=== PATIENT | male | born 1980 | race Two or more races ===

== ENCOUNTER 2021-07-02 00:27 | Emergency (ER) | payer SELFPAY ==
[~2021-07-02] VITALS: Ht 188 cm; Wt 81.8 kg
[2021-07-02] MEDS ORDERED: CLIN300C3 PO (00:37)
[2021-07-02] MEDS ORDERED: DiphenhydrAMINE HCL 25 MG CAPSULE PO ONE (02:45)
[2021-07-02] MEDS ORDERED: BACITRACIN 0.9 GM PACKET OINTMENT TP ONE (02:45)
[2021-07-02 03:36] VITALS: BP 124/69
== END 2021-07-02 03:56 | disposition home or self-care (01) ==
LOC: EMS 00:30
DX: L23.3 Allergic contact dermatitis due to drugs in contact with skin (principal); T36.8X5A Adverse effect of other systemic antibiotics, initial encounter; R23.8 Other skin changes; Y92.89 Other specified places as the place of occurrence of the external cause
CPT/HCPCS: 99283